=== PATIENT | female | born 1970 | race Caucasian/White ===

== ENCOUNTER 2017-03-03 17:56 | Emergency (ER) | payer SELFPAY ==
[~2017-03-03] VITALS: Wt 57.5 kg
[~2017-03-03 17:56] MED LIST: CYCL-319 PO; HYDR-906 PO; IBUP-1542 PO; NAPR-260 PO; NEOM1PAC TP; ONDA4TAB35 PO
== END 2017-03-03 18:40 | disposition left against medical advice (07) ==
LOC: FTE 17:56
DX: Z53.21 Procedure and treatment not carried out due to patient leaving prior to being seen by health care provider (principal)

== ENCOUNTER 2017-03-22 01:52 | Emergency (ER) | payer OTHER ==
[~2017-03-22] VITALS: Ht 162.6 cm; Wt 55.0 kg
[2017-03-22 01:54] VITALS: Ht 162.6 cm; Wt 55.0 kg
[2017-03-22] MEDS ORDERED: HYDR-3011 PO (03:43)
[2017-03-22] MEDS ORDERED: CEPH-443 PO (03:43)
--- NOTE | 2017-03-22 03:58 | ERD ---
ER Documentation Chief Complaint Date/Time DATE: 03/22/17 TIME: 03:55 Chief Complaint bug bites all over body from her car HPI 46-year-old female presents in emergency department for complaints of multiple insect bites all over the body itching and pain, burning pain 4/10 scale, is worse upon touching the areas. Patient noticed it to be red and swollen. Patient denies any fever or chills. Patient did not take any medications to be symptoms. Patient does not have any family members with the same Rash. ROS All systems reviewed and are negative except as per history of present illness. Medications Home Meds Active Scripts Cephalexin* (Keflex*) 500 Mg Capsule, 500 MG PO QID for 10 Days, CAP Prov:CARLOS ALBERTO MENON NP 03/22/17 Hydroxyzine Hcl* (Hydroxyzine Hcl*) 25 Mg Tablet, 25 MG PO Q8H Y for ITCHING, # 30 TAB Prov:CARLOS ALBERTO MENON NP 03/22/17 Neomycin Herr/Bacitrac Zn/Poly (Triple Antibiotic Ointment) 1 Each Oint.pack, 1 EACH TP BID for 10 Days Prov:GILMAR ROJAS PA-C 11/22/16 Naproxen* (Naprosyn*) 500 Mg Tablet, 500 MG PO BID Y for PAIN AND/OR INFLAMMATION, #30 TAB Prov:GILMAR ROJAS PA-C 11/22/16 Cyclobenzaprine Hcl* (Cyclobenzaprine Hcl*) 10 Mg Tablet, 10 MG PO TID, #15 TAB Prov:CARLOS ALBERTO MENON NP 08/30/16 Hydrocodone/Acetaminophen (Davidson 5-325 Tablet) 1 Each Tablet, 1 TAB PO Q6H Y for PAIN, #20 TAB Prov:CARLOS ALBERTO MENON NP 08/30/16 Ibuprofen* (Motrin*) 600 Mg Tab, 600 MG PO Q6H Y for PAIN AND OR ELEVATED TEMP, #30 TAB Prov:CARLOS ALBERTO MENON NP 08/30/16 Ibuprofen* (Motrin*) 600 Mg Tab, 600 MG PO Q6H Y for PAIN AND OR ELEVATED TEMP, #30 TAB Prov:HECTOR THOMAS PA-C 06/10/16 Ondansetron Hcl* (Zofran* ODT) 4 mg -ODT Tab.disper, 4 MG PO Q6 Y for NAUSEA AND /OR VOMITING, #15 TAB Prov:HECTOR THOMAS PA-C 06/10/16 Allergies Allergies: Coded Allergies: No Known Allergy (Unverified , 08/30/16) PMhx/Soc History of Surgery: Yes (OVARIAN CYST REMOVED; LEFT HAND TENDON SX) Anesthesia Reaction: No Hx Neurological Disorder: No Hx Respiratory Disorders: No Hx Cardiac Disorders: No Hx Psychiatric Problems: Yes ("MOOD SWINGS". ?? BIPOLAR) Hx Miscellaneous Medical Probl: No Hx Alcohol Use: Yes ("QUIT YEARS AGO") Hx Substance Use: No Hx Tobacco Use: No Smoking Status: Never smoker FmHx Family History: No coronary disease, No diabetes, No other Physical Exam Vitals Vital Signs Date Time Temp Pulse Resp B/P Pulse Ox O2 Delivery O2 Flow Rate FiO2 03/22/17 01:54 97.8 98 20 138/87 100 Physical Exam GENERAL: The patient is well developed and appropriate for usual state of health, in no apparent distress. CHEST: Clear to auscultation bilaterally. There are no rales, wheezes or rhonchi. HEART: Regular rate and rhythm. No murmurs, clicks, rubs or gallops. No S3 or S4. ABDOMEN: Soft, nontender and nondistended. Good bowel sounds. No rebound or guarding. No gross peritonitis. No gross organomegaly or masses. No Espinal sign or McBurney point tenderness. BACK: No midline or flank tenderness. EXTREMITIES: Equal pulses bilaterally. There is no peripheral clubbing, cyanosis or edema. No focal swelling or erythema. Full range of motion. Grossly neurovascularly intact. NEURO: Alert and oriented. Cranial nerves 2-12 intact. Motor strength in all 4 extremities with 5/5 strength. Sensation grossly intact. Normal speech and gait. SKIN: Notable maculopapular rash noted all over the body with erythema surrounding the area mild tenderness on palpation, no fluctuance noted. There is no apparent ecchymosis or petechia. The skin is warm and dry. HEMATOLOGIC AND LYMPHATIC: There is no evidence of excessive bruising or lymphedema. No gross cervical, axillary, or inguinal lymphadenopathy. Procedures/MDM Medical decision making: Patient's symptoms most likely consistent with infected insect bites. Patient does not have any symptoms of any abscesses. No contagious rash noted at this time. Patient was given for Keflex, hydroxyzine, is advised to avoid scratching the area, follow with primary care doctor in 2 days for reevaluation of symptoms. Patient is advised to return to emergency department for worsening symptoms Departure Diagnosis: Primary Impression: Infected insect bite Encounter type: initial encounter Qualified Code: W57.XXXA - Infected insect bite, initial encounter Condition: Stable Patient Instructions: Insect Sting/Bite, Infected CARLOS ALBERTO MENON NP Mar 22, 2017 03:58
== END 2017-03-22 04:06 | disposition home or self-care (01) ==
LOC: FTE 01:52
DX: T14.8 Other injury of unspecified body region (principal); W57.XXXA Bitten or stung by nonvenomous insect and other nonvenomous arthropods, initial encounter; Y92.9 Unspecified place or not applicable
CPT/HCPCS: 99283

== ENCOUNTER 2018-03-30 03:22 | Emergency (ER) | END 2018-03-30 04:25 | disposition home or self-care (01) ==